=== PATIENT | female | born 1970 | race Caucasian/White ===

== ENCOUNTER → 2018-05-23 09:52 | Outpatient (CLI) | payer OTHER, SELFPAY ==
[2018-05-23 10:25] LABS: Add Manual Diff / Slide Review NO; Basophils Absolute Auto 100 /uL (0-100); Basophils Percent Auto 0.8 % (0-2); Eosinophils Absolute Auto 500 /uL (0-450); Eosinophils Percent Auto 6.4 % (2-4); Hematocrit 40.5 % (36-46); Hemoglobin 13.5 g/dL (12.0-16.0); Lymphocytes Absolute Auto 1500 /uL (1100-4500); Lymphocytes Percent Auto 21.6 % (25-40); Mean Corpuscular HGB Conc 33.3 % (30-36); Mean Corpuscular Hemoglobin 31.2 PG (26-34); Mean Corpuscular Volume 93.6 fL (80-100); Monocytes Absolute Auto 500 /uL (0-900); Monocytes Percent Auto 7.7 % (3-14); Neutrophils Absolute Auto 4500 /uL (1500-7000); Neutrophils Percent Auto 63.5 % (50-75); Platelet Count 247 X10^3/uL (150-400); Red Blood Cell Count 4.32 X10^6/uL (4.0-5.2); Red Cell Distribution Width 12.7 % (11.6-14.8); White Blood Cell Count 7.1 X10^3/uL (4.5-11.0)
[2018-05-23 11:18] LABS: Alanine Aminotransferase 22 IU/L (9-52); Albumin Globulin Ratio 1.5 (1.0-2.8); Alkaline Phosphatase 51 U/L (38-126); Aspartate Aminotransferase 17 IU/L (14-36); BUN Creatinine Ratio 26.3 (6-22); Bilirubin Total 0.7 mg/dL (0.2-1.3); Blood Urea Nitrogen 21 mg/dL (7-17); Calcium 9.2 mg/dL (8.4-10.2); Carbon Dioxide 28 mmol/L (22-32); Chloride 105 mmol/L (98-107); Cholesterol 120 mg/dL (140-199); Estimated Glomerular Filt Rate > 60.0 mL/min (>60); Globulin 2.6 g/dL (1.7-4.1); Glucose 92 mg/dL (70-100); HDL Cholesterol 57 mg/dL (40-60); HEMOLYSIS < 15 (0-50); LDL Cholesterol Calculated 53 mg/dL (<100); Potassium 5.1 mmol/L (3.4-5.1); Sodium 140 mmol/L (137-145); Total Protein 6.6 g/dL (6.3-8.2); Triglycerides 48 mg/dL (35-150)
== END ==
PROVIDERS: PCP Internal Medicine; Visit Provider Internal Medicine
DX: Z00.00 Encounter for general adult medical examination without abnormal findings (principal); Z13.1 Encounter for screening for diabetes mellitus; Z13.6 Encounter for screening for cardiovascular disorders
CPT/HCPCS: 36415; 80053; 80061; 85025

== ENCOUNTER → 2018-06-11 09:17 | Outpatient (CLI) | payer OTHER, SELFPAY ==
--- NOTE | 2018-06-11 09:19 | DI.MRI.S_ITS ---
PROCEDURE: MR ANGIO HEAD WO CON INDICATIONS: Cerebral aneurysm/headaches TECHNIQUE: Noncontrast axial 3-D [id number] MR angiogram, with 3-dimensional maximum intensity projection (MIP) reformats of the internal carotid arteries and posterior circulation then performed. COMPARISON: None. FINDINGS: Image quality: Excellent. Anterior circulation: Intracranial internal carotid arteries demonstrate normal size and intraluminal flow signal. The flow within the paired anterior cerebral arteries is normal and symmetric. The flow within the middle cerebral arteries is normal and symmetric. The anterior communicating artery is seen. No stenoses, occlusions, or aneurysms. Posterior circulation: Visualized portions of the vertebral arteries demonstrate normal caliber, and join to form a normal appearing basilar artery. The flow within the posterior cerebral arteries is normal and symmetric. No stenoses, occlusions, or aneurysms. IMPRESSION: Negative cerebral MR angiography. No evidence of intracranial aneurysm. Dictated by: Emre Pina M.D. on 06/11/2018 at 10:40 Approved by: Emre Pina M.D. on 06/11/2018 at 10:42
== END ==
PROVIDERS: PCP Internal Medicine; Visit Provider Internal Medicine
DX: I67.1 Cerebral aneurysm, nonruptured (principal); R51 Headache
CPT/HCPCS: 70544

== ENCOUNTER → 2019-02-04 14:16 | Outpatient (CLI) | payer OTHER, SELFPAY ==
[2019-02-04 21:06] LABS: Urine N gonorrhoeae NOT DETECTED
[2019-02-04 21:15] LABS: Urine Chlamydia NOT DETECTED
== END ==
PROVIDERS: PCP Internal Medicine; Visit Provider Specialist
DX: R30.0 Dysuria (principal); Z20.2 Contact with and (suspected) exposure to infections with a predominantly sexual mode of transmission
CPT/HCPCS: 87255; 87491; 87591

== ENCOUNTER → 2020-12-05 16:52 | Outpatient (CLI) | payer OTHER, SELFPAY ==
[2020-12-05 18:53] LABS: Free T3, Triiodothyronine Free 3.77 pg/mL (2.77-5.27); Free T4, Direct Thyroxine 1.13 ng/dL (0.78-2.19)
[2020-12-06 05:37] LABS: Thyroid Peroxidase Antibodies 9 IU/mL (0-34)
[2020-12-15 19:43] LABS: Thyroglobulin Level 8.1 ng/mL (.)
== END ==
PROVIDERS: PCP Internal Medicine; Referring Provider Specialist; Visit Provider Specialist
DX: N95.1 Menopausal and female climacteric states (principal); R53.83 Other fatigue
CPT/HCPCS: 36415; 84432; 84439; 84443; 84481; 86376

== ENCOUNTER → 2021-05-26 07:57 | Outpatient (CLI) | payer OTHER, SELFPAY ==
[2021-05-26 08:27] LABS: Hematocrit 38.1 % (36-46); Hemoglobin 13.1 g/dL (12.0-16.0); Mean Corpuscular HGB Conc 34.4 % (30-36); Mean Corpuscular Hemoglobin 31.2 PG (26-34); Mean Corpuscular Volume 90.6 fL (80-100); Platelet Count 269 X10^3/uL (150-400); Red Blood Cell Count 4.21 X10^6/uL (4.0-5.2); Red Cell Distribution Width 12.3 % (11.6-14.8); White Blood Cell Count 5.7 X10^3/uL (4.5-11.0)
[2021-05-26 08:45] LABS: Alanine Aminotransferase 12 IU/L (<35); Albumin 4.1 g/dL (3.5-5.0); Albumin Globulin Ratio 1.6 (1.0-2.8); Alkaline Phosphatase 44 U/L (38-126); Aspartate Aminotransferase 19 IU/L (14-36); BUN Creatinine Ratio 24.1 (6-22); Bilirubin Total 0.7 mg/dL (0.2-1.3); Blood Urea Nitrogen 19 mg/dL (7-17); Calcium 9.2 mg/dL (8.4-10.2); Carbon Dioxide 30 mmol/L (22-32); Chloride 104 mmol/L (98-107); Cholesterol 121 mg/dL (140-199); Estimated Glomerular Filt Rate > 60.0 mL/min (>60); Globulin 2.5 g/dL (1.7-4.1); Glucose 94 mg/dL (70-100); HDL Cholesterol 52 mg/dL (40-60); HEMOLYSIS < 15 (0-50); LDL Cholesterol Calculated 58 mg/dL (<100); Potassium 4.4 mmol/L (3.4-5.1); Sodium 139 mmol/L (137-145); Total Protein 6.6 g/dL (6.3-8.2); Triglycerides 53 mg/dL (35-150)
[2021-05-26 09:01] LABS: Vitamin D 25 Hydroxy (D3) 53.8 ng/mL (30.0-100.0)
[2021-05-26 09:16] LABS: TSH w/ Reflex to FT4 2.01 uIU/mL (0.47-4.68)
== END ==
PROVIDERS: PCP Registered Nurse Diabetes Educator; Referring Provider Registered Nurse Diabetes Educator; Visit Provider Registered Nurse Diabetes Educator
DX: R53.83 Other fatigue (principal); Z00.00 Encounter for general adult medical examination without abnormal findings
CPT/HCPCS: 36415; 80053; 80061; 82306; 84443; 85027

== ENCOUNTER → 2022-03-14 10:59 | Outpatient (CLI) | payer OTHER, SELFPAY ==
[2022-03-14 12:28] LABS: COVID19 -Nasal RAPID Negative (Negative)
== END ==
PROVIDERS: PCP Registered Nurse Diabetes Educator; Visit Provider Surgery
DX: Z20.822 Contact with and (suspected) exposure to COVID-19 (principal); Z01.812 Encounter for preprocedural laboratory examination
CPT/HCPCS: 87635; C9803

== ENCOUNTER 2022-03-15 08:30 | Day surgery (SDC) | payer OTHER, SELFPAY ==
[2022-03-15 08:42] VITALS: BP 122/77; PULSE 78; RESP 16; TEMP 36.5; O2SAT 98; BMI 24.9
[2022-03-15] MEDS: LACTATED RINGERS 1,000 ML 42 ML IV (08:59)
--- NOTE | 2022-03-15 09:25 | PM.HP.1 ---
History of Present Illness History of Present Illness Date Patient Seen: 03/15/22 Time Patient Seen: 09:25 Chief complaint: SDC Narrative: Елена is a 51-year-old woman who is here for a screening colonoscopy. She has never had 1 before. She has no family history of colon cancer. Patient History Medical History Bilateral bunions Fibrocystic breast changes Herpes genitalis in women Surgical History S/P hysterectomy Family & Social History Family History Sister Cerebral aneurysm Brother Cerebral aneurysm Father Cancer Social History: household members significant other Tobacco & Substance use: Smoking Status Never smoker alcohol intake current Substance Use Type does not use Meds Home Medications and Allergies Home Medications Medication Instructions Recorded Confirmed Type albuterol sulfate 90 mcg/actuation 2 puff inhalation Q4-6H PRN 06/12/21 03/15/22 Rx aerosol inhaler shortness of breath or wheezing #6.7 grams estradiol 0.01% (0.1 mg/gram) 0.5 g vaginal DAILY #42.5 grams 09/04/21 03/15/22 Rx vaginal cream sodium sul 1.479 gram-potas ch See Rx Instructions PO PER PKG DIR 03/05/22 Rx 0.188 gram-magnes sul 0.225 gram #24 tabs tablet (Sutab) Allergies Allergy/AdvReac Type Severity Reaction Status Date / Time codeine [CODEINE] AdvReac Mild PT UNSURE Verified 03/15/22 08:38 OF ALLERGY-CAUSED AGITATION A CHILD Exam Vital Signs (past 8 hours): - 03/15/22 08:42 Temperature 97.7 F Pulse Rate 78 Respiratory Rate 16 Blood Pressure 122/77 Pulse Oximetry 98 Oxygen Delivery Method Room Air Oxygen Delivery Method Room Air Const General: healthy appearing Assessment & Plan Assessment and plan (1) Colon cancer screening: Status: Acute Plan 51-year-old woman of average risk here for a colonoscopy. We reviewed the risks and benefits and she would like to proceed. Time Spent With Patient Critical Care time: I spent a total of [] minutes of critical care time on this patient's care today; this time is exclusive of procedural time.
--- NOTE | 2022-03-15 09:48 | PM.OP.COLON ---
Operative Date/Time/Diagnoses Date of procedure: 03/15/22 Time of procedure: 09:48 Pre-op diagnosis: Colon cancer screening Post-op diagnosis: same Procedure & Clinicians Study performed: Colonoscopy Same procedure as scheduled: Yes Surgeon: Hernesto Freeman Procedure Notes Procedure in detail: Surgeon: Hernesto Freeman MD Anesthesia: MAC by Dr. Londono Procedure: The patient was brought to the endoscopy suite, placed in left lateral decubitus position. The patient was connected to monitoring devices. A time-out was performed. Sedation was administered. Once the patient was adequately sedated, a digital rectal exam was performed and was normal. The scope was then inserted and advanced to the cecum where the appendiceal orifice was identified and photographed. The terminal ileum was intubated and no abnormalities were noted. The scope was then slowly withdrawn over greater than 6 minutes. The mucosa was thoroughly inspected. No abnormalities were noted. The scope was retroflexed in the rectum. No abnormalities were noted. The scope was straightened and removed. The patient was awakened and brought to recovery. Scope withdrawal time: 9 Sedation time: 15 EBL: 0 Findings: Normal colon Post-procedure Recommendations: Colonoscopy in 10 years Disposition: PACU
[2022-03-15 09:49] VITALS: BP 110/73; PULSE 73; RESP 14; TEMP 36.4; O2SAT 100
[2022-03-15 09:55] VITALS: BP 116/86; PULSE 73; RESP 16; O2SAT 100
[2022-03-15 09:59] VITALS: BP 128/88; PULSE 65; RESP 12; TEMP 36.5; O2SAT 100
[2022-03-15 10:03] VITALS: BP 130/88; PULSE 67; RESP 14; TEMP 36.5; O2SAT 100
== END 2022-03-15 10:21 | disposition home or self-care (01) ==
PROVIDERS: PCP Registered Nurse Diabetes Educator; Referring Provider Surgery; Visit Provider Surgery
PROC: 0DJD8ZZ Inspection of Lower Intestinal Tract, Via Natural or Artificial Opening Endoscopic (ICD-10-PCS; CPT 45378; principal; 2022-03-15 09:30)
DX: Z12.11 Encounter for screening for malignant neoplasm of colon (principal)
CPT/HCPCS: 45378; J2704; J3010

== ENCOUNTER 2023-10-06 19:56 | Emergency (ER) | payer OTHER, MEDICAID, SELFPAY ==
[2023-10-06 19:58] VITALS: BP 138/60; PULSE 57; RESP 16; TEMP 36.8; O2SAT 99; BMI 24.9
[2023-10-06 20:27] LABS: Add Manual Diff / Slide Review NO; Basophils Absolute Auto 100 /uL (0-100); Basophils Percent Auto 0.5 % (0-2); Eosinophils Absolute Auto 100 /uL (0-450); Eosinophils Percent Auto 0.5 % (2-4); Hematocrit 38.2 % (36-46); Hemoglobin 12.7 g/dL (12.0-16.0); Lymphocytes Absolute Auto 1300 /uL (1100-4500); Lymphocytes Percent Auto 9.7 % (25-40); Mean Corpuscular HGB Conc 33.3 % (30-36); Mean Corpuscular Hemoglobin 31.1 PG (26-34); Mean Corpuscular Volume 93.3 fL (80-100); Monocytes Absolute Auto 400 /uL (0-900); Monocytes Percent Auto 2.9 % (3-14); Neutrophils Absolute Auto 11200 /uL (1500-7000); Neutrophils Percent Auto 86.4 % (50-75); Platelet Count 248 X10^3/uL (150-400); Red Blood Cell Count 4.09 X10^6/uL (4.0-5.2); Red Cell Distribution Width 12.9 % (11.6-14.8)
[2023-10-06 20:37] LABS: Alanine Aminotransferase 22 IU/L (<35); Albumin 4.2 g/dL (3.5-5.0); Albumin Globulin Ratio 1.7 (1.0-2.8); Alkaline Phosphatase 64 U/L (38-126); Aspartate Aminotransferase 32 IU/L (14-36); BUN Creatinine Ratio 34.3 (6-22); Bilirubin Total 0.6 mg/dL (0.2-1.3); Blood Urea Nitrogen 24 mg/dL (7-17); Calcium 8.4 mg/dL (8.4-10.2); Carbon Dioxide 26 mmol/L (22-32); Chloride 103 mmol/L (98-107); Estimated Glomerular Filt Rate > 60 mL/min (>60); Globulin 2.5 g/dL (1.7-4.1); Glucose 150 mg/dL (70-100); HEMOLYSIS < 15 (0-50); Lipase 73 U/L (23-300); Potassium 3.8 mmol/L (3.4-5.1); Sodium 134 mmol/L (137-145); Total Protein 6.7 g/dL (6.3-8.2)
--- NOTE | 2023-10-06 20:40 | DI.CT.S_ITS ---
PROCEDURE: CT ABDOMEN PELVIS W CON INDICATIONS: LLQ abd pain TECHNIQUE: After the administration of intravenous contrast, axial sections acquired from the lung bases to the pubic symphysis. Coronal and sagittal reformats were performed. For radiation dose reduction, the following was used: automated exposure control, adjustment of mA and/or kV according to patient size. COMPARISON: None. FINDINGS: Image quality: Diagnostic. Lower Chest: No significant findings. ABDOMEN: Liver: No solid mass. Gallbladder: No radiopaque gallstones or wall thickening. Biliary ducts: No biliary dilation. Pancreas: No ductal dilation. Spleen: Size is within normal limits. Adrenal Glands: No adrenal nodules. Kidneys and Ureters: No hydronephrosis. No solid mass. No complex renal cystic lesion which requires follow up. Stomach and Bowel: Moderate stool in the ascending and transverse colon. Sigmoid colon and rectum are decompressed. Normal appendix. Small bowel loops and stomach are unremarkable. Peritoneum: Small amount of free fluid in the pelvis is non-specific. No pneumoperitoneum. Ventral Wall: No significant ventral hernia. Abdominal Nodes: No retroperitoneal or mesenteric adenopathy by size criteria. Vessels: Aorta and inferior vena cava are normal in size. PELVIS: Pelvic Organs: Tubular hypoechoic structure is seen in the left adnexal region, which may represent a left adnexal cyst or hydrosalpinx. Status post hysterectomy. Bladder: No bladder wall thickening, accounting for underdistention. Pelvic Nodes: No enlarged lymph nodes. Miscellaneous: No inguinal hernias are seen. Bones: No aggressive osseous abnormality. Focal degenerative changes are seen at the L5-S1 level. IMPRESSION: 1. No acute abnormality identified in the abdomen or pelvis. 2. Tubular fluid collection in the left adnexal region may represent an adnexal cyst or hydrosalpinx. Pelvic ultrasound could be performed for further evaluation if indicated clinically. Approved by: Froylan Gallardo M.D. on 10/06/2023 at 22:03
[2023-10-06] MEDS: KETOROLAC 30 MG/ML VIAL IV (20:47)
[2023-10-06] MEDS: ONDANSETRON 4 MG/2 ML INJ IV (20:48)
[2023-10-06 20:55] LABS: Bacteria Urine Occasional (0-1); RBC Urine None Seen (0-5/HPF); Squamous Epithelial Cell Urine 1-5 /HPF (0-5/HPF); Urine Volume Low Vol <10mL (spun); WBC Urine 0-1/HPF (0-5/HPF)
[2023-10-06 20:56] LABS: Culture Indicated Urine Cult Not Indicated
[2023-10-06] MEDS: MORPHINE 4 MG/ML INJ IV (21:43)
--- NOTE | 2023-10-06 22:19 | ED_ITS ---
HPI - General Adult General Chief complaint: Abdominal Pain Stated complaint: abd pain Time Seen by Provider: 10/06/23 20:17 Source: patient Mode of arrival: Ambulatory History of Present Illness HPI narrative: Patient is a 53-year-old female. Has had a hysterectomy. Is here for evaluation of left lower quadrant abdominal pain that started earlier today. No vomiting. No fevers. No urinary symptoms. No change in bowel habits. No chest pain. No shortness of breath. Has not had discomfort like this in the past. Pain is worse with palpation. No vaginal symptoms. Related Data Home Medications Medication Instructions Recorded Confirmed valacyclovir 500 mg tablet 500 mg PO DAILY 03/13/23 03/13/23 Previous Rx's Medication Instructions Recorded estradiol 0.01% (0.1 mg/gram) 0.5 g vaginal DAILY #42.5 grams 09/04/21 vaginal cream estradiol 0.05 mg/24 hr semiweekly See Rx Instructions .Route 03/13/23 transdermal patch (Lyllana) .COMPLEX #8 patches valacyclovir 500 mg tablet 500 mg PO DAILY recurrent HSV #90 08/22/23 tabs hydrocodone 5 mg-acetaminophen 325 1 tab PO Q4-6H PRN pain #10 tabs 10/06/23 mg tablet ondansetron 4 mg disintegrating 4 mg PO Q6H PRN nausea and 10/06/23 tablet vomiting #10 tabs Allergies Allergy/AdvReac Type Severity Reaction Status Date / Time codeine [CODEINE] AdvReac Mild PT UNSURE Verified 04/23/22 15:32 OF ALLERGY-CAUSED AGITATION A CHILD Review of Systems Review of Systems Narrative: See HPI Patient History Medical History Bilateral bunions Herpes genitalis in women Fibrocystic breast changes Surgical History S/P hysterectomy Family History Sister Cerebral aneurysm Brother Cerebral aneurysm Father Cancer Social History household members: significant other Smoking Status: Never smoker alcohol intake: current Smoking Status: Never smoker Substance Use Type: does not use Exam Initial Vital Signs Initial Vital Signs: Vital Signs Temperature 98.3 F 10/06/23 19:58 Pulse Rate 57 L 10/06/23 19:58 Respiratory Rate 16 10/06/23 19:58 Blood Pressure 138/60 10/06/23 19:58 Pulse Oximetry 99 10/06/23 19:58 Oxygen Delivery Method Room Air 10/06/23 19:58 [facility] Head: normal to inspection and normocephalic Resp Effort & Inspection: normal respiratory effort Cardio Rate: regular rate GI Inspection: normal to inspection and non-distended Palpation: soft, No firm, No guarding, No rigid, tender and No ascites Back/Spine/Pelvis Back: No CVA tenderness Skin General: no rashes or lesions noted Neuro General: patient alert, patient awake and moves all extremities Course Orders Ordered: ED Orders 10/06/23 20:04 EKG-12 Lead Stat 10/06/23 20:08 Urine Microscopic Stat 10/06/23 20:11 Complete Blood Count AUTO DIFF Stat Comprehensive Metabolic Panel Stat Lipase Stat 10/06/23 20:40 CT abdomen pelvis w con Stat 10/06/23 22:20 US pelvic complete Stat Discontinued Medications Hydrocodone Bitart/Acetaminophen (Hydrocodone/Acet 5/325 Tablet) 1 tab PO NOW ONE Stop: 10/06/23 23:58 Last Admin: 10/07/23 00:06 Dose: 1 tab Documented By: ODILON Hydromorphone HCl (Hydromorphone 1 Mg Inj) 1 mg IV NOW ONE Stop: 10/06/23 22:21 Last Admin: 10/06/23 22:29 Dose: 1 mg Documented By: ODILON Ketorolac Tromethamine (Ketorolac 30 Mg/Ml Vial) 30 mg IV NOW ONE Stop: 10/06/23 20:40 Last Admin: 10/06/23 20:47 Dose: 30 mg Documented By: ODILON Morphine Sulfate (Morphine 4 Mg/Ml Inj) 4 mg IV NOW ONE Stop: 10/06/23 21:41 Last Admin: 10/06/23 21:43 Dose: 4 mg Documented By: ODILON Ondansetron HCl (Ondansetron 4 Mg Odt) 4 mg PO NOW PRN PRN Reason: Nausea And Vomiting Ondansetron HCl (Ondansetron 4 Mg/2 Ml Inj) 4 mg IV NOW PRN PRN Reason: Nausea And Vomiting Last Admin: 10/06/23 20:48 Dose: 4 mg Documented By: ODILON Ondansetron HCl (Ondansetron 4 Mg Odt Prepack) 1 bottle MISC DIRECTED ONE Stop: 10/06/23 23:58 Last Admin: 10/07/23 00:06 Dose: 1 bottle Documented By: ODILON Vital Signs Vital signs: Vital Signs - 8 hr 10/06/23 19:58 10/07/23 00:12 Temperature 98.3 F Pulse Rate 57 L 64 Respiratory Rate 16 18 Blood Pressure 138/60 127/63 Pulse Oximetry 99 100 Oxygen Delivery Method Room Air Room Air Medical Decision Making Lab Data Lab results reviewed: Yes I reviewed the patient's lab results. 10/06/23 20:11 10/06/23 20:11 Labs: Lab Results 10/06/23 10/06/23 Range/Units 20:08 20:11 WBC 13.0 H (4.5-11.0) X10^3/uL RBC 4.09 (4.0-5.2) X10^6/uL Hgb 12.7 (12.0-16.0) g/dL Hct 38.2 (36-46) % MCV 93.3 (80-100) fL MCH 31.1 (26-34) PG MCHC 33.3 (30-36) % RDW 12.9 (11.6-14.8) % Plt Count 248 (150-400) X10^3/uL Neut % (Auto) 86.4 H (50-75) % Lymph % (Auto) 9.7 L (25-40) % [place] % (Auto) 2.9 L (3-14) % Eos % (Auto) 0.5 L (2-4) % Baso % (Auto) 0.5 (0-2) % Neut # (Auto) 94218 H (7216-6054) /uL Lymph # (Auto) 1300 (6713-3770) /uL [place] # (Auto) 400 (0-900) /uL Eos # (Auto) 100 (0-450) /uL Baso # (Auto) 100 (0-100) /uL Sodium 134 L (137-145) mmol/L Potassium 3.8 (3.4-5.1) mmol/L Chloride 103 (98-107) mmol/L Carbon Dioxide 26 (22-32) mmol/L BUN 24 H (7-17) mg/dL Creatinine 0.70 (0.52-1.04) mg/dL Estimated GFR > 60 (>60) mL/min BUN/Creatinine Ratio 34.3 H (6-22) Glucose 150 H (70-100) mg/dL Calcium 8.4 (8.4-10.2) mg/dL Total Bilirubin 0.6 (0.2-1.3) mg/dL AST 32 (14-36) IU/L ALT 22 (<35) IU/L Alkaline Phosphatase 64 (38-126) U/L Total Protein 6.7 (6.3-8.2) g/dL Albumin 4.2 (3.5-5.0) g/dL Globulin 2.5 (1.7-4.1) g/dL Albumin/Globulin Ratio 1.7 (1.0-2.8) Lipase 73 (23-300) U/L Urine RBC None seen (0-5/HPF) Urine WBC 0-1/hpf (0-5/HPF) Ur Squamous Epith Cells 1-5 /hpf (0-5/HPF) Urine Bacteria Occasional (0-1) (None) Ur Culture Indicated? Cult not indicated Vol Urine Centrifuged Low vol <10ml (spun) A Urine Dip Bedside Urine Glucose Negative Bedside Urine Bilirubin - Negative Bedside Urine Ketone +++ 80 Urine Specific [place] 1.030 Bedside Urine Occult Blood + Bedside Urine pH 5.5 Bedside Urine Protein - Negative Bedside Urine Urobilinogen - Negative Bedside Urine Nitrite - Negative Bedside Urine Leukocytes - Negative Esterase Point of care testing: Urine Dip Bedside Urine Glucose Negative Bedside Urine Bilirubin - Negative Bedside Urine Ketone +++ 80 Urine Specific [place] 1.030 Bedside Urine Occult Blood + Bedside Urine pH 5.5 Bedside Urine Protein - Negative Bedside Urine Urobilinogen - Negative Bedside Urine Nitrite - Negative Bedside Urine Leukocytes - Negative Esterase Imaging Data CT scan - abdomen/pelvis: Radiologist's Impression: PROCEDURE: CT ABDOMEN PELVIS W CON INDICATIONS: LLQ abd pain TECHNIQUE: After the administration of intravenous contrast, axial sections acquired from the lung bases to the pubic symphysis. Coronal and sagittal reformats were performed. For radiation dose reduction, the following was used: automated exposure control, adjustment of mA and/or kV according to patient size. COMPARISON: None. FINDINGS: Image quality: Diagnostic. Lower Chest: No significant findings. ABDOMEN: Liver: No solid mass. Gallbladder: No radiopaque gallstones or wall thickening. Biliary ducts: No biliary dilation. Pancreas: No ductal dilation. Spleen: Size is within normal limits. Adrenal Glands: No adrenal nodules. Kidneys and Ureters: No hydronephrosis. No solid mass. No complex renal cystic lesion which requires follow up. Stomach and Bowel: Moderate stool in the ascending and transverse colon. Sigmoid colon and rectum are decompressed. Normal appendix. Small bowel loops and stomach are unremarkable. Peritoneum: Small amount of free fluid in the pelvis is non-specific. No pneumoperitoneum. Ventral Wall: No significant ventral hernia. Abdominal Nodes: No retroperitoneal or mesenteric adenopathy by size criteria. Vessels: Aorta and inferior vena cava are normal in size. PELVIS: Pelvic Organs: Tubular hypoechoic structure is seen in the left adnexal region, which may represent a left adnexal cyst or hydrosalpinx. Status post hysterectomy. Bladder: No bladder wall thickening, accounting for underdistention. Pelvic Nodes: No enlarged lymph nodes. Miscellaneous: No inguinal hernias are seen. Bones: No aggressive osseous abnormality. Focal degenerative changes are seen at the L5-S1 level. IMPRESSION: 1. No acute abnormality identified in the abdomen or pelvis. 2. Tubular fluid collection in the left adnexal region may represent an adnexal cyst or hydrosalpinx. Pelvic ultrasound could be performed for further evaluation if indicated clinically. US - PROGRAM ARCHITECT: Radiologist's Impression: PROCEDURE: US PELVIC COMPLETE INDICATIONS: L adnexa cyst TECHNIQUE: Real-time scanning was performed of the pelvic organs, with image documentation. Additional endovaginal scanning was necessary due to incomplete visualization of the adnexal and endometrial structures by transabdominal scanning. COMPARISON: [facility], CT, CT ABDOMEN PELVIS W CON, 10/06/2023, 20:46. FINDINGS: Uterus: Status post hysterectomy. Ovaries: The right ovary measures 2.0 x 3.0 x 1.4 cm, with a calculated ovarian volume of 4.5 cc. The left ovary measures 2.1 x 1.5 x 1.2 cm, with a calculated ovarian volume of 2.0 cc. The ovaries have a normal sonographic appearance. Less than 12 follicles can be seen in each ovary. Tubular anechoic fluid-filled structure is seen separate from the ovary in the left adnexa measuring 4.9 x 1.5 x 3.4 cm. Normal Doppler flow is seen to each ovary. Other: Small amount of free fluid in the pelvis may be physiologic. IMPRESSION: 1. Left adnexal tubular anechoic cystic lesion measuring up to 4.9 cm in length is suspicious for hydrosalpinx. This corresponds with the CT finding from earlier the same day. 2. No sonographic signs of ovarian torsion. MDM Narrative Medical decision making narrative: Fairly extensive workup here in the emergency department shows a labs that were unremarkable. Urinalysis showed no signs of infection. She has had hysterectomy. CT scan shows a cystic structure in the left adnexa which according to the follow-up ultrasound is consistent with a hydrosalpinx. No signs of infection. No signs of ovarian torsion. His could potentially be causing the discomfort that she is having today. We discussed the possibility that this is an incidental finding and we do not have a definitive etiology however there does not appear to be any emergent surgical etiology. No indication for admission in the hospital. No indication for antibiotics. Plan will be to discharge patient home with symptom treatment. She should follow-up with small parts assembler and she was given information for this. She was given return precautions and follow-up instructions. She expressed understanding and agreement. Discharge Plan Departure Patient Disposition: Home Clinical Impression: Abdominal pain, Hydrosalpinx Instructions: DI for Abdominal Pain-Adult Activity Restrictions/Additional Instructions: I do recommend that tomorrow morning you contact your primary care doctor as you are most likely going to need a referral to see the finance attorney. Take the medication as directed. Return to the emergency department for new or worsening symptoms. Prescriptions: New ondansetron 4 mg tablet,disintegrating 4 mg PO Q6H PRN (Reason: nausea and vomiting) Qty: 10 0RF hydrocodone-acetaminophen 5-325 mg tablet 1 tab PO Q4-6H PRN (Reason: pain) Qty: 10 0RF No Action valacyclovir 500 mg tablet 500 mg PO DAILY Qty: 90 3RF estradiol 0.01 % (0.1 mg/gram) cream 0.5 g vaginal DAILY Qty: 42.5 1RF Rx Instructions: for 14 days, then decrease to 0.5 g twice weekly valacyclovir 500 mg tablet 500 mg PO DAILY estradiol [Lyllana] 0.05 mg/24 hr patch semiweekly See Rx Instructions .ROUTE .COMPLEX Qty: 8 11RF Dose Instruction: APPLY ONE PATCH TRANSDERMALLY TWICE WEEKLY. APPLY ONE PATCH FOR 3 DAYS ALTERNATING WITH ONE PATCH FOR 4 DAYS EACH WEEK Rx Instructions: APPLY ONE PATCH TRANSDERMALLY TWICE WEEKLY. APPLY ONE PATCH FOR 3 DAYS ALTERNATING WITH ONE PATCH FOR 4 DAYS EACH WEEK Referrals: Katherine Garcia MD [Physician] - Jus Corral ARNP [Primary Care Provider] - Stand Alone Forms: Patient Portal/API
[2023-10-06] MEDS: HYDROMORPHONE 1 MG INJ IV (22:29)
[2023-10-07] MEDS: HYDROCODONE/ACET 5/325 TABLET 1 TAB PO (00:06)
[2023-10-07] MEDS: ONDANSETRON 4 MG ODT PREPACK 1 BOTTLE MISC (00:06)
[2023-10-07 00:12] VITALS: BP 127/63; PULSE 64; RESP 18; O2SAT 100
== END 2023-10-07 00:24 | disposition home or self-care (01) ==
PROVIDERS: Emergency Provider Emergency Medicine; PCP Registered Nurse Diabetes Educator
DX: R10.32 Left lower quadrant pain (principal); N70.11 Chronic salpingitis
CPT/HCPCS: 36415; 74177; 76856; 80053; 81003; 81015; 83690; 85025; 93005; 96374; 96375; 99284; J1170; J1885; J2270; J2405; Q9967

== ENCOUNTER → 2023-10-11 09:32 | Outpatient (CLI) | payer OTHER, MEDICAID, SELFPAY ==
[2023-10-11 11:28] LABS: Cancer Antigen 125 < 5.5 U/mL (0-35)
[2023-10-15 09:36] LABS: Human Epididymis Prot 4 39.6 pmol/L (0.0-105.2)
== END ==
LOC: LAB 09:34
PROVIDERS: PCP Registered Nurse Diabetes Educator; Referring Provider Student in an Organized Health Care Education/Training Program; Visit Provider Student in an Organized Health Care Education/Training Program
DX: N70.11 Chronic salpingitis (principal)
CPT/HCPCS: 36415; 86304; 86305

== ENCOUNTER 2023-10-14 11:02 | Day surgery (SDC) | payer OTHER, MEDICAID, SELFPAY ==
[2023-10-14] VITALS (7 sets, daily range): BP systolic 98–116; BP diastolic 60–78; PULSE 61–68; RESP 13–16; TEMP 36.2–36.7; O2SAT 98–99; BMI 25.2
--- NOTE | 2023-10-14 | PATH_ITS ---
[facility] Accession Number: [id number] No. of containers..01 Tissue . 01 Material submitted: . ovary - BILATERAL OVARIES AND BILATERAL FALLOPIAN TUBES . 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 Attached ovary with a benign cystic corpus luteum (6 mm). Detached ovary with benign cystic corpora lutea (up to 7 mm); negative for significant atypia. No second fallopian tube identified; please see comment. [facility] 10/18/2023 1653 Local . 01 Comment: Ksenia Fay discussed the absent second fallopian tube with Nadine, from Dr. Sellers' care team on 10-18-23 at approximately 9:20 a.m. . 01 Electronically signed: . Ksenia Fay MD, Pathologist NPI- [id number] . 01 Gross description: . Received in formalin with two patient identifiers and bilateral ovaries and fallopian tubes, is a nonfimbriated dilated fallopian tube, 5.7 x 1.7 cm with congested smooth serosa and a small pedunculated cystic structure, 0.7 cm in greatest dimension filled with clear serous fluid. The lumen is dilated up to 2.1 cm with potter that average 0.1 cm thick, and the contents are serosanguineous. No lesions are identified. Note: No second fallopian tube is identified within the container (photographs taken). The ovary attached to the included tube weighs 5 grams and measures 3.0 x 2.9 x 1.3 cm. The cut surfaces have a cystic structure, 0.6 cm in greatest dimension, containing a small amount of serosanguineous fluid and are disrupted to the surface of the ovary. No additional lesions are identified. . The separate ovary weighs 4 grams and measures 2.9 x 2.6 x 1.3 cm, and is hurtado-yellow and cerebriform with lesions identified. The cut surface has a thin smooth-walled cystic structure measuring 0.7 cm in greatest dimension, filled with hurtado serous fluid. No additional lesions are identified. Profiler Operator sections are submitted as follows: . A1: Fallopian tube to include cyst and cross sections. A2: Ovary attached to tube with cystic structure. A3: Separate ovary with cystic structure. ([id number]) /MRV 10/15/2023 1627 Local . 01 Pathologist provided ICD-10: N70.11 . 01 CPT . 497540 Specimen Comment: A courtesy copy of this report has been sent to [facility]ology Performed at: [address] [address], [place], [place] [id number] MD Nima Chand MD Phone: [phone]
--- NOTE | 2023-10-14 12:35 | PM.PREOP ---
Pre-operative Note Interval Note History & Physical reviewed/Exam performed by Physician: Yes Changes to H&P: No H&P completed within 30 days and has changed as indicated here:: see note from 10/11/23; CA-125 was low, HE-4 is pending We further discussed risk/benefit of removing both ovaries at the same time as removing both fallopian tubes, and pt desires to proceed with BSO. Surgical consent reviewed and signed today. We discussed the risks/benefits/alternatives to the proposed procedure, to include but not limited to: -risk of bleeding, requiring medications, blood products, or other procedures as indicated -risk of infection, requiring prolonged hospital stay or other procedures -risk of injury to other structures, including bowel, bladder, blood vessels, nerves, etc. which may also require additional procedures -risk of adverse reaction to anesthesia or medications -risk of venous thromboembolism and associated sequelae -risk of rare complications such as cardiac arrest, or extremely rarely,
--- NOTE | 2023-10-14 13:22 | SUR.OPER ---
Lithotomy on padded OR bed, head on pillow, arms secured on padded arm boards at <90 degrees abduction. Legs secured in padded yellow fins stirrups.
[2023-10-14] MEDS: LACTATED RINGERS 1,000 ML 42 ML IV (13:52)
[2023-10-14] MEDS: BUPIVACAINE 0.5% W/ EPI (PF) 10 ML VIAL 30 ML INJ (14:07)
--- NOTE | 2023-10-14 14:11 | PM.OP.1 ---
Operative Date/Time/Diagnoses Date of procedure: 10/14/23 Time of procedure: 13:30 Pre-op diagnosis: Left hydrosalpinx Post-op diagnosis: same Procedure & Clinicians Procedure: Laparoscopic bilateral salpingo-oophorectomy Same procedure as scheduled: Yes Indications: 53-year-old female with left lower quadrant pain and left hydrosalpinx on imaging, counseled and consented for laparoscopic left salpingectomy, with concomitant risk reducing bilateral salpingo-oophorectomy. Surgeon: Rosalind Singh Medical Auditor: Clotilde Ghotra Click Yes if Unassisted: Yes Anesthesia Type: General Operative Notes Findings: Uterus surgically absent. Left fallopian tube dilated and abnormal in appearance. No peritoneal implants were noted. Bilateral ovaries normal in appearance. Normal-appearing right fallopian tube. Normal appearing liver edge and gallbladder. Normal appendix. Closure Type: primary Specimen(s): other (bilateral fallopian tubes and bilateral ovaries) Applied: catheter Estimated Blood Loss (mL): 5 Blood products transfused: none Procedure in detail: The risks, benefits, indications and alternatives of the procedure were reviewed with the patient and informed consent was obtained. The pt was taken to the operating room where general anesthesia was obtained without difficulty. The pt was then placed in the low lithotomy position using gel-padded Jose Stirrups. Sequential compression devices were placed bilaterally for VTE prophylaxis. Pt was then prepped and draped in the usual sterile fashion. A Ramsay catheter was placed without difficulty. Attention was then turned to the patient?s abdomen where a 5mm skin incision was made in the inferior aspect of the umbilicus after injection of 0.25% marcaine. A 5mm trocar and sleeve were then carefully introduced into the peritoneal cavity under direct visualization at a 90-degree angle while tenting up the abdominal wall. Intra-peritoneal placement was confirmed under direct visualization with the laparoscope with entry pressure <5mmHg. A pneumoperitoneum was obtained with several liters of CO2 gas, maximum pressure of 15mmHg. Upon entry into the peritoneal cavity, structures immediately below the incision were inspected and found to be free of injury. Two additional trocars were placed, a 5 mm trocar in the left lower quadrant, and a 11 mm trocar in the right lower quadrant under direct laparoscopic visualization after injection of 0.25% marcaine at each site. A survey of the pt?s abdomen and pelvis was notable for the above findings. Using an atraumatic grasper, the left fallopian tube and ovary was tented up. In a stepwise fashion, the left infundibulopelvic ligament was ligated and transected, then the fallopian tube and ovary was ligated and transected from the peritoneum along the left pelvic brim using the Powerseal device. The same procedure was performed on the patient?s right side to excise the right fallopian tube and ovary. An Endo-Catch bag was then introduced through the 11 mm port, and both fallopian tubes and both ovaries were placed inside. The specimens were then removed through the 11 mm port, remaining in the bag. A Easton Menon device was then used to close the fascia of the 11 mm port with an 0 Vicryl stitch. All pelvic pedicles were re-examined and noted to be hemostatic. The gas was then turned off and all CO2 was removed from the pt?s abdomen. The trocars were removed. The skin incision sites were reapproximated using 4-0 monocryl and dermabond. The ramsay catheter was removed from the bladder. All instruments were confirmed to be removed from the vagina. At the completion of the case the sponge and needle counts were correct x 2. The patient tolerated the procedure well and was taken to the PACU in stable condition. Complications: none Post-operative Condition: stable Disposition: PACU Plan for aftercare: Discharge to home once meeting PACU criteria.
[2023-10-14] MEDS: OXYCODONE IR 5 MG TABLET PO ×2 (14:28→15:05)
== END 2023-10-14 15:25 | disposition home or self-care (01) ==
PROVIDERS: PCP Registered Nurse Diabetes Educator; Referring Provider Student in an Organized Health Care Education/Training Program; Visit Provider Student in an Organized Health Care Education/Training Program
PROC: (CPT 58661; principal; 2023-10-14 12:15)
DX: N70.11 Chronic salpingitis (principal); N83.10 Corpus luteum cyst of ovary, unspecified side; N83.299 Other ovarian cyst, unspecified side
CPT/HCPCS: 58661; J1100; J1885; J2250; J2405; J2704; J3010

== ENCOUNTER → 2024-03-11 10:22 | Outpatient (CLI) | payer OTHER, MEDICAID, SELFPAY ==
[2024-03-11 11:10] LABS: Hematocrit 43.5 % (36-46); Hemoglobin 14.8 g/dL (12.0-16.0); Mean Corpuscular Hemoglobin 31.5 PG (26-34); Mean Corpuscular Volume 92.6 fL (80-100); Platelet Count 261 X10^3/uL (150-400); Red Blood Cell Count 4.69 X10^6/uL (4.0-5.2); Red Cell Distribution Width 12.5 % (11.6-14.8); White Blood Cell Count 5.3 X10^3/uL (4.5-11.0)
[2024-03-11 11:26] LABS: Alanine Aminotransferase 21 IU/L (<35); Albumin 4.8 g/dL (3.5-5.0); Albumin Globulin Ratio 1.5 (1.0-2.8); Alkaline Phosphatase 66 U/L (38-126); Aspartate Aminotransferase 28 IU/L (14-36); BUN Creatinine Ratio 22.6 (6-22); Bilirubin Total 0.8 mg/dL (0.2-1.3); Blood Urea Nitrogen 21 mg/dL (7-17); Calcium 9.4 mg/dL (8.4-10.2); Carbon Dioxide 26 mmol/L (22-32); Chloride 104 mmol/L (98-107); Estimated Glomerular Filt Rate > 60 mL/min (>60); Globulin 3.1 g/dL (1.7-4.1); Glucose 94 mg/dL (70-100); HEMOLYSIS < 15 (0-50); Potassium 4.7 mmol/L (3.4-5.1); Sodium 137 mmol/L (137-145); Total Protein 7.9 g/dL (6.3-8.2)
[2024-03-11 11:55] LABS: TSH w/ Reflex to FT4 1.27 uIU/mL (0.47-4.68)
== END ==
PROVIDERS: PCP Registered Nurse Diabetes Educator; Referring Provider Registered Nurse Diabetes Educator; Visit Provider Registered Nurse Diabetes Educator
DX: Z00.00 Encounter for general adult medical examination without abnormal findings (principal); G43.109 Migraine with aura, not intractable, without status migrainosus; H53.9 Unspecified visual disturbance; Z82.49 Family history of ischemic heart disease and other diseases of the circulatory system; M54.2 Cervicalgia
CPT/HCPCS: 36415; 80053; 83735; 84443; 85027

== ENCOUNTER → 2024-04-21 17:44 | Outpatient (CLI) | payer OTHER, SELFPAY ==
--- NOTE | 2024-04-21 17:49 | DI.MRI.S_ITS ---
PROCEDURE: MR HEAD/BRAIN WO CON INDICATIONS: eval, family history cerebral aneurysm, worsening headaches TECHNIQUE: Noncontrast axial T1 spin echo, axial T2 fast spin echo, sagittal and axial FLAIR, coronal T2 fast spin echo, axial gradient echo, axial diffusion and ADC through the brain. COMPARISON: [facility], MR, MR ANGIO HEAD WO CON, 04/21/2024, 18:05. [facility], MR, MR ANGIO HEAD WO CON, 06/11/2018, 9:53. FINDINGS: Image quality: Excellent. CSF Spaces: Basal cisterns are patent. No extra-axial fluid collections. Ventricles are normal in size and shape. Brain: No intracranial masses or hemorrhage. Baugh/white matter interface is normal. Brainstem appears normal. Diffusion-weighted images demonstrate no acute infarct. No chronic ischemic insults. Normal intravascular flow voids are present. Skull and face: Calvarium has normal marrow signal. Orbits appear normal. Sinuses: Sinuses and mastoids are clear. IMPRESSION: 1. No acute intracranial process. Dictated by: Tabatha Mendieta M.D. on 04/22/2024 at 19:43 Approved by: Tabatha Mendieta M.D. on 04/22/2024 at 19:44
--- NOTE | 2024-04-21 17:49 | DI.RAD.S_ITS ---
PROCEDURE: XR CERVICAL SPINE 2V OR 3V INDICATIONS: eval, recurrent NASH with neck pain/tightness TECHNIQUE: 3 view(s) of the cervical spine were acquired. COMPARISON: None. FINDINGS: Bones: No fractures or dislocations to the C7 level. Straightening of the normal cervical lordosis. Mild retrolisthesis of C5 on C6. The lateral masses of C1 appear intact on the odontoid view. No suspicious bony lesions. Mild multilevel degenerative changes, most pronounced at C5-C6. Soft tissues: No prevertebral soft tissue swelling. IMPRESSION: Mild multilevel degenerative changes of the cervical spine, most pronounced at C5-C6. Dictated by: Gonzalo Newton M.D. on 04/22/2024 at 13:20 Approved by: Gonzalo Newton M.D. on 04/22/2024 at 13:21
--- NOTE | 2024-04-21 17:49 | DI.MRI.S_ITS ---
PROCEDURE: MR ANGIO HEAD WO CON INDICATIONS: eval, family history cerebral aneurysm, worsening headaches TECHNIQUE: Noncontrast axial 3-D [id number] MR angiogram, with 3-dimensional maximum intensity projection (MIP) reformats of the internal carotid arteries and posterior circulation then performed. COMPARISON: [facility], , MR ANGIO HEAD WO CON, 06/11/2018, 9:53. FINDINGS: Image quality: Excellent. Anterior circulation: Intracranial internal carotid arteries demonstrate normal size and intraluminal flow signal. The flow within the paired anterior cerebral arteries is normal and symmetric. The flow within the middle cerebral arteries is normal and symmetric. The anterior communicating artery is seen. No stenoses, occlusions, or aneurysms. Posterior circulation: Visualized portions of the vertebral arteries demonstrate normal caliber, and join to form a normal appearing basilar artery. The flow within the posterior cerebral arteries is normal and symmetric. No stenoses, occlusions, or aneurysms. IMPRESSION: No areas of hemodynamically significant stenosis, vascular occlusion or aneurysmal dilation within the anterior circulation. No areas of hemodynamically significant stenosis, vascular occlusion or aneurysmal dilation within the posterior circulation. Dictated by: Tabatha Mendieta M.D. on 04/22/2024 at 19:43 Approved by: Tabatha Mendieta M.D. on 04/22/2024 at 19:43
== END ==
LOC: MRI 17:48
PROVIDERS: PCP Registered Nurse Diabetes Educator; Referring Provider Registered Nurse Diabetes Educator; Visit Provider Registered Nurse Diabetes Educator
DX: G43.109 Migraine with aura, not intractable, without status migrainosus (principal); H53.9 Unspecified visual disturbance; M47.812 Spondylosis without myelopathy or radiculopathy, cervical region; M54.2 Cervicalgia; R29.898 Other symptoms and signs involving the musculoskeletal system; Z82.49 Family history of ischemic heart disease and other diseases of the circulatory system
CPT/HCPCS: 70544; 70551; 72040

== ENCOUNTER → 2025-02-08 11:49 | Outpatient (CLI) | payer OTHER, SELFPAY ==
[2025-02-08 13:39] LABS: Hematocrit 38.1 % (36-46); Hemoglobin 13.2 g/dL (12.0-16.0); Mean Corpuscular HGB Conc 34.5 % (30-36); Mean Corpuscular Hemoglobin 31.0 PG (26-34); Mean Corpuscular Volume 89.8 fL (80-100); Platelet Count 263 X10^3/uL (150-400)
[2025-02-08 14:01] LABS: HEMOLYSIS < 15 (0-50); Iron 111 ug/dL (37-170)
[2025-02-08 14:07] LABS: Alanine Aminotransferase 20 IU/L (<35); Albumin 4.3 g/dL (3.5-5.0); Albumin Globulin Ratio 1.7 (1.0-2.8); Alkaline Phosphatase 59 U/L (38-126); Blood Urea Nitrogen 19 mg/dL (7-17); Calcium 9.1 mg/dL (8.4-10.2); Carbon Dioxide 27 mmol/L (22-32); Chloride 103 mmol/L (98-107); Estimated Glomerular Filt Rate > 60 mL/min (>60); Globulin 2.6 g/dL (1.7-4.1); Glucose 86 mg/dL (70-99); HEMOLYSIS < 15 (0-50); Potassium 4.5 mmol/L (3.4-5.1); Sodium 137 mmol/L (137-145); Total Protein 6.9 g/dL (6.3-8.2)
[2025-02-08 14:14] LABS: Percent Iron Saturation 48 % (15-50); Total Iron Binding Capacity 229 ug/dL (265-497); Transferrin 190 mg/dL (206-381)
[2025-02-08 14:18] LABS: Vitamin D 25 Hydroxy (D3) 55.6 ng/mL (30.0-100.0)
[2025-02-08 14:33] LABS: TSH w/ Reflex to FT4 1.13 uIU/mL (0.47-4.68)
[2025-02-08 14:36] LABS: Ferritin 210 ng/mL (11-264)
[2025-02-08 14:51] LABS: Vitamin B12 712 pg/mL (239-931)
== END ==
PROVIDERS: PCP Registered Nurse Diabetes Educator; Referring Provider Registered Nurse Diabetes Educator; Visit Provider Registered Nurse Diabetes Educator
DX: Z00.00 Encounter for general adult medical examination without abnormal findings (principal); Z79.890 Hormone replacement therapy
CPT/HCPCS: 36415; 80053; 82306; 82607; 82728; 83540; 83550; 84443; 85027; 85651; 86140